=== PATIENT | female | born 1970 | race African-American/Black ===

== ENCOUNTER 2017-02-20 20:06 | Emergency (ER) | payer OTHER ==
[~2017-02-20] VITALS: Ht 157.5 cm; Wt 129.0 kg
[~2017-02-20 20:06] MED LIST: ATOR20TA PO; METF500T4 PO
[2017-02-20 21:45] LABS: BASOPHILS % 0.5 % (0.0-2.0); HEMATOCRIT. 33.6 % (36.0-48.0); HEMOGLOBIN. 10.9 g/dL (12.0-16.0); LYMPHOCYTES % 31.7 % (20.0-50.0); MEAN CORPUSCULAR VOLUME 79.9 fL (81.0-99.0); MONOCYTES % 8.9 % (2.0-8.0); NEUTROPHILS % 56.9 % (40.0-76.0); PLATELET 441 x1000/uL (130-400); RED BLOOD CELL COUNT 4.21 mill/uL (4.2-5.4); RED CELL DISTRIBUTION WIDTH 15.9 % (11.6-14.6)
[2017-02-20 21:46] LABS: CHLORIDE 105 mEq/L (98-107)
[2017-02-20 21:49] LABS: HCG SCREEN NEGATIVE
[2017-02-20 21:50] LABS: CARBON DIOXIDE 29 mEq/L (21-32)
[2017-02-20 22:37] LABS: CLARITY URINE CLOUDY (CLEAR); COLOR URINE YELLOW (YELLOW); GLUCOSE URINE NEGATIVE (NEGATIVE); KETONES URINE TRACE (NEGATIVE); LEUKOCYTE ESTERASE URINE NEGATIVE (NEGATIVE); NITRITE URINE POSITIVE (NEGATIVE); OCCULT BLOOD URINE 2+ (NEGATIVE); PH URINE 5.5 (4.5-8.0); PROTEIN URINE NEGATIVE (NEGATIVE); SPECIFIC GRAVITY URINE 1.036 (1.005-1.030)
[2017-02-20] MEDS ORDERED: CEPHALEXIN 500MG CAPSULE PO ONE (22:45)
[2017-02-20] MEDS ORDERED: PROCHLORPERAZINE 10MG/2ML VIAL IV STA (22:47)
[2017-02-21 00:19] VITALS: BP 141/71
== END 2017-02-21 00:25 | disposition home or self-care (01) ==
LOC: ER 20:53
DX: R60.0 Localized edema (principal); N39.0 Urinary tract infection, site not specified; E11.9 Type 2 diabetes mellitus without complications; D64.9 Anemia, unspecified; J45.909 Unspecified asthma, uncomplicated; Z79.4 Long term (current) use of insulin; Z98.890 Other specified postprocedural states
CPT/HCPCS: 36415; 71010; 80053; 81001; 83690; 83880; 84443; 84703; 85025; 85610; 93005; 93970; 96374; 99285; J0780; Z7610